=== PATIENT | male | born 1990 | race Caucasian/White ===

== ENCOUNTER 2018-05-18 06:53 | Emergency (ER) | payer SELFPAY ==
[~2018-05-18] VITALS: Ht 175.3 cm; Wt 77.1 kg
[2018-05-18 07:10] VITALS: BP_SYST 127
--- NOTE | 2018-05-18 07:10 | NUR ---
Pt C/O left ankle pain and swelling x 3 weeks. Pt states 3 weeks ago he jumped over a wall and injured his ankle. Pt went to the hospital, xrays were taken and was sent home with ankle wrap and ibuprofen. Pt states pain is getting progressively worse and swelling is still present. Pain is 10/10 nonradiating. Vital signs are stable, will continue to monitor.
--- NOTE | 2018-05-18 07:24 | NUR ---
ER Dr. Aiken at bedside examining patient.
--- NOTE | 2018-05-18 07:45 | NUR ---
XRAYS BEING DONE AT BEDSIDE.
[2018-05-18] MEDS ORDERED: KETOROLAC TROMETHAMINE 30 MG VIAL IM ONE (08:00)
--- NOTE | 2018-05-18 08:04 | NUR ---
MEDICATED ORDERED. PT TOLERATED IT WELL. AT BEDSIDE.
[2018-05-18 08:54] VITALS: BP_SYST 129
--- NOTE | 2018-05-18 08:55 | NUR ---
Patient given written and verbal discharge instructions and verbalizes understanding. ER MD discussed with patient the results and treatment provided. Patient in stable condition. ID arm band removed. Rx of MOTRIN given. Patient educated on pain management and to follow up with PMD. Pain Scale 0/10. Opportunity for questions provided and answered. Medication side effect fact sheet provided.
== END 2018-05-18 08:54 | disposition home or self-care (01) ==
LOC: SED 06:53
DX: S93.402A Sprain of unspecified ligament of left ankle, initial encounter (principal); F17.200 Nicotine dependence, unspecified, uncomplicated; X58.XXXA Exposure to other specified factors, initial encounter; Y93.89 Activity, other specified; Y92.89 Other specified places as the place of occurrence of the external cause; Y99.8 Other external cause status
CPT/HCPCS: 73610; 96372; 99283; J1885